=== PATIENT | male | born 1985 | race African-American/Black ===

== ENCOUNTER 2019-11-26 20:13 | Emergency (ER) | payer SELFPAY ==
[~2019-11-26] VITALS: Ht 188 cm; Wt 99.8 kg
[2019-11-26 20:25] VITALS: BP 150/92
--- NOTE | 2019-11-26 20:25 | NUR ---
ED Nurse Note: Pt brought in by [facility] 36 for c/o SOB onset one day ago, worse today. Pt was given two rounds of breathing treatments en route by ELIU. Pt is aaox4, able to speak in full sentences, breathing is normal and unlabored upon ED arrival. Pt also reports cough. No cardiac distress noted. Pt is ambulatory with steady gait, will continue to monitor.
[2019-11-26] MEDS ORDERED: Ipratropium 0.02% Inh Soln 2.5ml UD HHN ONE (20:30)
[2019-11-26] MEDS ORDERED: Albuterol ud Inhalation HHN ONE (20:30)
--- NOTE | 2019-11-26 20:32 | Emergency Room Report ---
History of Present Illness General Chief Complaint: Dyspnea/Respdistress Source: Patient Present Illness HPI Patient presents with complaints of asthma exacerbation reports that he was using his inhaler with minimal relief Also increased cough and mild congestion Denies any chest pain denies any vomiting denies any fevers denies any recent travel Patient does smoke marijuana Denies any pleurisy Feels somewhat better with breathing treatment in route by paramedics Allergies: Coded Allergies: No Known Allergies (Unverified , 11/26/19) Patient History Past Medical History: see triage record Reviewed Nursing Documentation: PMH: Agreed; PSxH: Agreed Nursing Documentation-PMH Past Medical History: No History, Except For Hx Asthma: Yes Hx Diabetes: Yes Review of Systems All Other Systems: negative except mentioned in HPI Physical Exam Vital Signs Date Time Temp Pulse Resp B/P (MAP) Pulse Ox O2 Delivery O2 Flow Rate FiO2 11/26/19 20:20 98.8 102 20 150/92 (111) 99 Room Air Sp02 EP Interpretation: reviewed, normal General Appearance: well appearing, no apparent distress Head: normocephalic, atraumatic Eyes: bilateral eye PERRL, bilateral eye EOMI ENT: hearing grossly normal, normal pharynx, TMs + canals normal, uvula midline Neck: full range of motion, supple, no meningismus, no bony tend Respiratory: no respiratory distress, no retraction, no accessory muscle use, wheezing - Bilaterally Cardiovascular #1: normal peripheral pulses, regular rate, rhythm, no edema, no gallop, no JVD, no murmur Gastrointestinal: normal bowel sounds, non tender, soft, no mass, no organomegaly, non-distended, no guarding, no hernia, no pulsatile mass, no rebound Genitourinary: no CVA tenderness Musculoskeletal: normal inspection Neurologic: motor strength/tone normal, rubber tubing backer III-XII nml as tested, oriented x3 , sensory intact, responsive Psychiatric: mood/affect normal Skin: no rash Lymphatic: normal inspection, no adenopathy Medical Decision Making Last Vital Signs Date Time Temp Pulse Resp B/P (MAP) Pulse Ox O2 Delivery O2 Flow Rate FiO2 11/26/19 20:20 98.8 102 20 150/92 (111) 99 Room Air Scripts Unable to Obtain Active Prescriptions or Reported Meds Amna Jeffers DO Nov 26, 2019 20:32
[2019-11-26] MEDS ORDERED: ALBUTEROL SULF8.5 GM INH (20:42)
[2019-11-26] MEDS ORDERED: MEDROL DOSEPAK4 MG ORAL (20:42)
--- NOTE | 2019-11-26 21:20 | NUR ---
ED Nurse Note: ERMD aware of pt HR elevated due to breathing tx, clear for DC.
--- NOTE | 2019-11-26 21:25 | NUR ---
ED Nurse Note: Pt states he feels better at this time, decreased wheezing noted after breathing treatment.
[2019-11-26 21:30] VITALS: BP 145/84
--- NOTE | 2019-11-26 21:30 | NUR ---
ER DISCHARGE NOTE: Patient is cleared to be discharged per ERMD, pt is aox4, on room air, with stable vital signs. pt was given dc and prescription instructions, pt was able to verbalize understanding, pt id band and iv site removed without complications. pt is able to ambulate with steady gait. pt took all belongings.
--- NOTE | 2019-11-27 10:56 | Diagnostic Imaging Report ---
Indication: Shortness of breath Technique: One view of the chest Comparison: none Findings: Lungs and pleural spaces are clear. Heart size is normal. Impression: No acute process
== END 2019-11-26 22:00 | disposition home or self-care (01) ==
LOC: EDBD 20:13 → EMR 21:50
DX: R05 Cough (principal); F12.90 Cannabis use, unspecified, uncomplicated; E11.9 Type 2 diabetes mellitus without complications; J45.909 Unspecified asthma, uncomplicated
CPT/HCPCS: 71045; 99284; J7512